=== PATIENT | male | born 2000 | race Caucasian/White ===

== ENCOUNTER 2025-03-29 10:41 | Emergency (ER) | payer OTHER, SELFPAY ==
[2025-03-29 10:51] VITALS: TEMP 36.4; BMI 26.6
[2025-03-29] MEDS: LIDOCAINE 1% (PF) 5 ML INJ (12:08)
--- NOTE | 2025-03-29 12:09 | PC.NURSE ---
sutures performed by Provider Rory
--- NOTE | 2025-03-29 12:33 | ED_ITS ---
<Statement entered by To Moreira, DO - 03/29/25 14:23> Co-sign statement: I was available for consultation during this patient's emergency department visit. This chart is being signed by myself for administrative purposes only. I do not have direct contact with this patient during this visit. They were seen independently by the APC. HPI - Wound/Laceration General Chief Complaint: Wound/Laceration Stated Complaint: Rt pinkie finger cut with glass cup Time Seen by Provider: 03/29/25 11:00 Source: patient Mode of arrival: Ambulatory History of Present Illness HPI narrative: 24-year-old male here today for a laceration to his right pinky finger. States just before arrival patient was washing a glass cup and it broke several shards causing a laceration to his finger. He immediately applied pressure and bandaged it and came here. He is up-to-date on his tetanus shot. He has a no other concerns today. Related Data Allergies Allergy/AdvReac Type Severity Reaction Status Date / Time No Known Drug Allergies Allergy Verified 03/29/25 10:51 Review of Systems Review of Systems ROS Unobtainable: All systems reviewed & are unremarkable except as noted in HPI and below Patient History Smoking Status: Unknown if ever smoked Exam Narrative Exam Narrative: GENERAL: Well-developed, well-nourished, appears stated age. In no acute distress HEAD: Atraumatic. Normocephalic. EYES: Pupils equal round and reactive. Extraocular motions intact. No scleral icterus. No injection or drainage. ENT: Nose without bleeding, purulent drainage. Airway patent. NECK: Trachea midline. Non tender RESPIRATORY: Respiratory rate and effort normal EXTREMITIES: No edema or joint tenderness. NEURO: AOx3. SKIN: 2 cm crescent shaped laceration on the lateral right pinky finger near but not involving the PIP. Full range of motion present. Normal strength and sensation of the affected digit normal signs of perfusion. Very minimal active bleeding. No foreign body noted Initial Vital Signs Initial Vital Signs: Vital Signs Temperature 97.5 F L 03/29/25 10:51 Procedures Laceration Repair Laceration 1: Time of procedure: 12:00 Site: hand (Right 5th digit) Size (cm): 2 Description: other (Somers shaped) Depth: simple, single layer Local Anesthetic: lidocaine 1% Amount of anesthesia used (mL): 1.5 Pre-repair: irrigated extensively Skin layer closed with: nylon Skin layer suture size: 5-0 Number of sutures: 5 Technique: simple, interrupted Course Orders Ordered: Discontinued Medications Lidocaine HCl (Lidocaine 1% (Pf) 2ml) 2 ml SUBCUT NOW ONE Stop: 03/29/25 11:52 Last Admin: 03/29/25 11:56 Dose: Not Given Documented By: PAULINO Lidocaine HCl (Lidocaine 1% (Pf) 5 Ml) 5 ml INJ NOW ONE Stop: 03/29/25 11:54 Last Admin: 03/29/25 12:08 Dose: 5 ml Documented By: PAULINO Vital Signs Vital signs: Vital Signs - 8 hr 03/29/25 10:51 Temperature 97.5 F L MDM - Wound/Laceration MDM Narrative Medical decision making narrative: Patient has a simple 2 cm laceration without any evidence of foreign body on his right pinky finger. For infection control and quick healing he will need sutures to be placed. Tetanus up-to-date. Patient tolerated the procedure well in his wound was bandaged afterwards with proper wound care instructions given on follow up instructions for removing the stitches in 7 or 8 days. We d iscussed signs of infection and when to return for evaluation. Discharge Plan Departure Patient Disposition: Home Clinical Impression: Laceration of finger of left hand Qualifiers: Encounter type: initial encounter Finger: little finger Damage to nail status: without damage Foreign body presence: without foreign body Qualified Code(s): S61.217A - Laceration without foreign body of left little finger without damage to nail, initial encounter Instructions: DI for Laceration Repair Activity Restrictions/Additional Instructions: thank You for choosing us to care for you today. You received 5 stitches in your left pinky finger for a laceration. You will need to have these stitches removed in 7-8 days. . Please keep the wound dry for the next 12 hours and after that remove your bandage and wash gently with soap and water. You will need to wash the area gently with soap and water twice daily and keep it bandaged when you are at work or using your hands a lot. If you have any signs of redness, swelling, pain, discharge from the wound you need to be evaluated for possible infection Stand Alone Forms: Patient Portal/API
== END 2025-03-29 12:38 | disposition home or self-care (01) ==
PROVIDERS: Emergency Provider Physician Assistant
DX: S61.217A Laceration without foreign body of left little finger without damage to nail, initial encounter (principal); W25.XXXA Contact with sharp glass, initial encounter
CPT/HCPCS: 12001; 99283